=== PATIENT | female | born 1925 | race Caucasian/White ===

== ENCOUNTER → 2016-09-12 | Outpatient (CLI) | payer MEDICARE, BC, OTHER | LOC: MW.CHFP 08:00 | PROVIDERS: ATTEND Physician Assistant | DX: R26.81 Unsteadiness on feet (principal); W19.XXXA Unspecified fall, initial encounter; Y92.099 Unspecified place in other non-institutional residence as the place of occurrence of the external cause | CPT/HCPCS: G0463 ==

== ENCOUNTER 2016-12-09 09:39 | Emergency (ER) | payer MEDICARE, BC, OTHER ==
--- NOTE | 2016-12-09 09:47 | EDM.PDOC ---
ED HPI GENERAL MEDICAL PROBLEM - General Stated Complaint: POSSIBLE STROKE Time Seen by Provider: 12/09/16 09:46 Source of Information: Reports: Patient - History of Present Illness INITIAL COMMENTS - FREE TEXT/NARRATIVE: HISTORY AND PHYSICAL: History of present illness: []Patient presents from home via EMS Patient was up and about enjoying her usual state of health she is generally quite active at home, at 9:00 she went to the bathroom and was found partially slid off the toilet no fall she had right facial droop, 4 out of 5 weakness in both upper extremities no hand grasp bilateral on arrival as well as a mild clonus bilateral lower extremities. CT head without contrast was negative for acute process I did discuss patient with Dr. Brock symptoms had been improving at approximately the 2 hour margi she had good grasp on the right facial droop is improved 5 out of 5 strength lower extremities the clonus had resolved however the patient remains a phasic she can communicate by nodding her head and she has no hand grasp on the right at current. Dr. Brock neurology recommends providing TPA as we are with well within the three-hour window and no known contraindications Review of systems: As per history of present illness and below otherwise all systems reviewed and negative. Past medical history: As per history of present illness and as reviewed below otherwise noncontributory. Surgical history: As per history of present illness and as reviewed below otherwise noncontributory. Social history: No reported history of drug or alcohol abuse. Family history: As per history of present illness and as reviewed below otherwise noncontributory. Physical exam: HEENT: Atraumatic, normocephalic, pupils reactive, negative for conjunctival pallor or scleral icterus, mucous membranes moist, throat clear, neck supple, nontender, trachea midline. Lungs: Clear to auscultation, breath sounds equal bilaterally, chest nontender. Heart: S1S2, regular, negative for clicks, rubs, or JVD. Abdomen: Soft, nondistended, nontender. Negative for masses or hepatosplenomegaly. Negative for costovertebral tenderness. Pelvis: Stable nontender. Genitourinary: Deferred. Rectal: Deferred. Extremities: Atraumatic, negative for cords or calf pain. Neurovascular unremarkable. Neuro: Awake, alert, oriented. Cranial nervesright cranial nerve 7 leasion, unremarkable. . no nursing services manager strength right UE, right facial droop, aphasia noted Diagnostics: []Lab as below EKG Chest [address] no contrast Therapeutics: Normal saline 1 25 mL per hour TPA per protocol. 41.8 mg total, 4.2 mg bolus, 37.6mg over 1 hour Impression: []Right facial weakness improved Bilateral clonus resolved Left nursing services manager has returned full strength She has no nursing services manager strength 0 out of 5 right hand, otherwise right upper extremity has 5 out of 5 strength Definitive disposition and diagnosis as appropriate pending reevaluation and review of above. unable to verbalized Pain Score (Numeric/FACES): 0 - Related Data Allergies Allergy/AdvReac Type Severity Reaction Status Date / Time Penicillins Allergy Other Verified 12/09/16 10:10 Home Meds: Home Meds Atenolol 25 mg PO DAILY 04/23/16 [History] Enalapril [Vasotec] 5 mg PO BID 04/23/16 [History] Simvastatin [Zocor] 40 mg PO BEDTIME 04/23/16 [History] Bisacodyl [Dulcolax] 5 mg PO DAILY PRN 04/25/16 [History] Diltiazem HCl [Diltiazem 24Hr ER] 120 mg PO BID 04/25/16 [History] Acetaminophen [Tylenol] 650 mg PO Q4H PRN #0 tablet 04/29/16 [Rx] Acetaminophen/oxyCODONE [Percocet 325-5 MG] 1 tab PO Q4H PRN #15 tablet [Rx] Docusate Sodium [Colace] 100 mg PO BID PRN cap 04/29/16 [Rx] Ferrous Sulfate 325 mg PO BIDMEALS tablet 04/29/16 [Rx] Polyethylene Glycol 3350 [MiraLAX] 17 gm PO DAILY PRN packet 04/29/16 [Rx] Hydrocodone/Acetaminophen [Hydrocodon-Acetaminophn 10-325] 1 tab PO Q4H PRN [History] Meloxicam 15 mg PO DAILY 12/09/16 [History] Nitrofurantoin Macrocrystal [Macrodantin] 100 mg PO DAILY 12/09/16 [History] Past Medical History HEENT History: Reports: None Cardiovascular History: Reports: High Cholesterol, Hypertension Respiratory History: Reports: COPD, Other (See Below) Other Respiratory History: left lung removed 20 years ago for lung cancer Gastrointestinal History: Reports: Diverticulosis, Other (See Below) Other Gastrointestinal History: colitis Genitourinary History: Reports: UTI, Recurrent DESIGN CHIEF History: Reports: Musculoskeletal History: Reports: Arthritis Neurological History: Reports: None Psychiatric History: Reports: None Endocrine/Metabolic History: Denies: Diabetes, Type II Other Endocrine/Metabolic History: "borderline diabetes" Hematologic History: Reports: Blood Transfusion(s) Oncologic (Cancer) History: Reports: Lung, Other (See Below) Other Oncologic History: hx of lung ca Dermatologic History: Reports: None - Infectious Disease History Infectious Disease History: Reports: Measles, Mumps, Rubella - Past Surgical History Musculoskeletal Surgical History: Reports: Hip Replacement Social & Family History - Family History Family Medical History: Unobtainable HEENT: Reports: Other (See Below) Other HEENT Family History: hole in eardrum Cardiac: Reports: High Cholesterol, Hypertension, [place] Respiratory: Reports: COPD GI: Reports: Chronic Constipation, Chronic Diarrhea OBGYN: Reports: Musculoskeletal: Reports: Back pain, Chronic, Osteoarthritis, Osteoporosis Endocrine/Metabolic: Reports: Other (See Below) Other Endocrine/Metabolic Family History: Both parents had diabetes, type unknown Oncologic: Reports: Colon Other Oncologic Family History: Client stated her family had multiple types of cancers, but could not name them - Tobacco Use Smoking Status *Q: Former Smoker Years of Tobacco use: 50 Packs/Tins Daily: 0.5 Used Tobacco, but Quit: No Month Tobacco Last Used: january Second Hand Smoke Exposure: Yes - Caffeine Use Caffeine Use: Reports: None - Alcohol Use Days Per Week of Alcohol Use: 0 - Recreational Drug Use Recreational Drug Use: No - Living Situation & Occupation Living situation: Reports: with Family ED ROS GENERAL - Review of Systems Review Of Systems: ROS reveals no pertinent complaints other than HPI. ED EXAM, GENERAL - Physical Exam Exam: See Below Course - Vital Signs Last Recorded V/S: Last Vital Signs Temp 36.3 C 12/09/16 09:45 Pulse 61 12/09/16 09:45 Resp 23 H 12/09/16 09:45 BP 157/60 H 12/09/16 09:45 Pulse Ox 95 12/09/16 09:45 - Orders/Labs/Meds Orders: Active Orders 24 hr Category Date Time Status EKG Documentation Completion [RC] STAT Care 12/09/16 09:44 Active DRUG SCREEN, URINE [URCHEM] Stat Lab 12/09/16 10:57 Ordered UA W/MICROSCOPIC [URIN] Stat Lab 12/09/16 10:57 Ordered Labs: Laboratory Tests 12/09/16 12/09/16 12/09/16 Range/Units 09:46 09:46 09:46 WBC 9.10 (4.0-11.0) K/uL RBC 4.14 L (4.30-5.90) M/uL Hgb 11.8 L (12.0-16.0) g/dL Hct 39.2 (36.0-46.0) % MCV 94.7 (80.0-98.0) fL MCH 28.5 (27.0-32.0) pg MCHC 30.1 L (31.0-37.0) g/dL RDW Std Deviation 47.4 (28.0-62.0) fl RDW Coeff of Fady 14 (11.0-15.0) % Plt Count 266 (150-400) K/uL MPV 10.80 (7.40-12.00) fL Neut % (Auto) 67.8 (48.0-80.0) % Lymph % (Auto) 24.2 (16.0-40.0) % [place] % (Auto) 6.6 (0.0-15.0) % Eos % (Auto) 1.3 (0.0-7.0) % Baso % (Auto) 0.1 (0.0-1.5) % Neut # (Auto) 6.2 H (1.4-5.7) K/uL Lymph # (Auto) 2.2 (0.6-2.4) K/uL [place] # (Auto) 0.6 (0.0-0.8) K/uL Eos # (Auto) 0.1 (0.0-0.7) K/uL Baso # (Auto) 0.0 (0.0-0.1) K/uL Nucleated RBC % 0.0 /100WBC Nucleated RBCs # 0 K/uL INR (0.86-1.11) Sodium 142 (136-146) mmol/L Potassium 4.9 (3.5-5.1) mmol/L Chloride 99 (98-110) mmol/L Carbon Dioxide 32 H (21-31) mmol/L BUN 24 H (6.0-23.0) mg/dL Creatinine 1.0 (0.6-1.5) mg/dL Est Cr Clr Drug Dosing TNP Estimated GFR (MDRD) 52.2 ml/min Glucose 139 H (60-110) mg/dL Calcium 9.8 (8.8-10.8) mg/dL Total Bilirubin 0.4 (0.1-1.5) mg/dL AST 15 (5-40) IU/L ALT 6 L (8-54) IU/L Alkaline Phosphatase 56 (40-150) Troponin I < 0.10 (0.0-0.29) NG/ML Total Protein 7.4 (6.0-8.0) g/dL Albumin 3.6 (3.4-4.8) g/dL Globulin 3.8 H (2.0-3.5) g/dL Albumin/Globulin Ratio 1.0 L (1.3-2.8) Ethyl Alcohol < 10.0 mg/dL 12/09/16 Range/Units 09:46 WBC (4.0-11.0) K/uL RBC (4.30-5.90) M/uL Hgb (12.0-16.0) g/dL Hct (36.0-46.0) % MCV (80.0-98.0) fL MCH (27.0-32.0) pg MCHC (31.0-37.0) g/dL RDW Std Deviation (28.0-62.0) fl RDW Coeff of Fady (11.0-15.0) % Plt Count (150-400) K/uL MPV (7.40-12.00) fL Neut % (Auto) (48.0-80.0) % Lymph % (Auto) (16.0-40.0) % [place] % (Auto) (0.0-15.0) % Eos % (Auto) (0.0-7.0) % Baso % (Auto) (0.0-1.5) % Neut # (Auto) (1.4-5.7) K/uL Lymph # (Auto) (0.6-2.4) K/uL [place] # (Auto) (0.0-0.8) K/uL Eos # (Auto) (0.0-0.7) K/uL Baso # (Auto) (0.0-0.1) K/uL Nucleated RBC % /100WBC Nucleated RBCs # K/uL INR 0.95 (0.86-1.11) Sodium (136-146) mmol/L Potassium (3.5-5.1) mmol/L Chloride (98-110) mmol/L Carbon Dioxide (21-31) mmol/L BUN (6.0-23.0) mg/dL Creatinine (0.6-1.5) mg/dL Est Cr Clr Drug Dosing Estimated GFR (MDRD) ml/min Glucose (60-110) mg/dL Calcium (8.8-10.8) mg/dL Total Bilirubin (0.1-1.5) mg/dL AST (5-40) IU/L ALT (8-54) IU/L Alkaline Phosphatase (40-150) Troponin I (0.0-0.29) NG/ML Total Protein (6.0-8.0) g/dL Albumin (3.4-4.8) g/dL Globulin (2.0-3.5) g/dL Albumin/Globulin Ratio (1.3-2.8) Ethyl Alcohol mg/dL Meds: Medications Discontinued Medications Generic Name Dose Route Start Last Admin Trade Name Allq PRN Reason Stop Dose Admin Alteplase, Recombinant Confirm 12/09/16 11:20 Activase Administered 12/09/16 11:21 Dose 100 mg .ROUTE .STK-MED ONE Aspirin 324 mg 12/09/16 10:04 12/09/16 10:45 Aspirin PO 12/09/16 10:05 Not Given ONETIME ONE Lidocaine HCl Confirm 12/09/16 11:27 Xylocaine-Mpf 1% Administered 12/09/16 11:28 Dose 2 mls @ as directed .ROUTE .STK-MED ONE Departure - Departure Time of Disposition: 12:01 Disposition: DC/Tfer to Other 70 Condition: Poor Clinical Impression: Stroke - Discharge Information Referrals: PCP,None [Primary Care Provider] - - My Orders Last 24 Hours: My Active Orders 12/09/16 09:44 EKG Documentation Completion [RC] STAT 12/09/16 10:57 DRUG SCREEN, URINE [URCHEM] Stat UA W/MICROSCOPIC [URIN] Stat - Assessment/Plan Last 24 Hours: My Active Orders 12/09/16 09:44 EKG Documentation Completion [RC] STAT 12/09/16 10:57 DRUG SCREEN, URINE [URCHEM] Stat UA W/MICROSCOPIC [URIN] Stat
--- NOTE | 2016-12-09 10:03 | CT ---
EXAMINATION: Non contrast CT head. Coronal and sagittal reformats. HISTORY: Pain FINDINGS: No evidence of intra or extra axial hemorrhage, mass, midline shift, hydrocephalus or edema. There is moderate generalized atrophy and periventricular white matter hypodensities noted. No hypoattenuation changes in the major vascular territories to suggest acute infarct. No abnormal intracranial calcifications are detected. Mild vascular calcifications are noted. Partial opacification of the right mastoid air cells and middle ear noted. Severe degenerative adair es noted within the right TMJ. The pituitary fossa appears unremarkable. The orbits and globes are symmetric. The calvarium is intact. No evidence of skull fracture. IMPRESSION: 1. No acute intracranial findings. 2. Moderate generalized atrophy and small vessel ischemic changes. 3. Partial opacification of the right middle ear and mastoid air cells, correlate clinically. The above findings were called to the ER at 10:00 AM.
[2016-12-09] MEDS ORDERED: Aspirin 81 MG Tab.Chew PO ONE (10:04)
[2016-12-09 10:15] LABS: CHLORIDE,CL 99 mmol/L (98-110); SODIUM,NA 142 mmol/L (136-146)
--- NOTE | 2016-12-09 10:22 | CR ---
EXAMINATION: Portable chest radiograph. HISTORY: Weakness. FINDINGS: The trachea is midline. The cardiac silhouette is obscured secondary to complete opacification of th e left hemithorax, stable. Aortic calcifications are noted. Stable coarse interstitial prominence wi thin the right hemithorax. There is likely a tiny loculated right pleural effusion no pneumothorax. Osseous structures appear osteopenic. IMPRESSION: 1. Stable opacification of the left hemithorax. 2. Chronic interstitial changes within the right hemithorax. 3. Tiny right pleural effusion.
[2016-12-09] MEDS ORDERED: Lidocaine 1% 2 ML ONE (11:27)
--- NOTE | 2016-12-09 11:54 | PCM.SN ---
- Free Text/Narrative Note: called for IV access. Patient unable to verbalize dx stroke. Family at bedside. L) arm aseptic technique 20 ga AC attempt, unable to access vein, Ultrasound used to visualize L) upper arm. 20 ga placed, saline lock, dressing and secure with tape. RN notified.
[2016-12-09] MEDS ORDERED: ALTEPLASE IV SCH (12:15)
--- NOTE | 2016-12-09 13:01 | EDM.PDOC ---
ED HPI GENERAL MEDICAL PROBLEM - General Chief Complaint: Neurological Problem Stated Complaint: POSSIBLE STROKE Time Seen by Provider: 12/09/16 10:45 Source of Information: Reports: Patient - History of Present Illness INITIAL COMMENTS - FREE TEXT/NARRATIVE: This is an 89-year-old woman with HL atrial fibrillation on aspirin, COPD, presenting with right-sided weakness, aphasia. Per her daughter, she was last seen normal at 9:00 this morning. She was then found to be minimally responsive with weakness, worse on the right side. By the time she arrived in the emergency department, she had improvement in her mental status, but she continued to have right facial droop, right upper and lower limb weakness and aphasia.. Patient is not able to provide history. Most recent systolic blood pressure was 150s. CT head was negative for acute process. No recent surgeries or procedures, history of bleeding. She does bruise easily unable to verbalized Pain Score (Numeric/FACES): 0 - Related Data Allergies Allergy/AdvReac Type Severity Reaction Status Date / Time Penicillins Allergy Other Verified 12/09/16 10:10 Home Meds: Home Meds Atenolol 25 mg PO DAILY 04/23/16 [History] Enalapril [Vasotec] 5 mg PO BID 04/23/16 [History] Simvastatin [Zocor] 40 mg PO BEDTIME 04/23/16 [History] Bisacodyl [Dulcolax] 5 mg PO DAILY PRN 04/25/16 [History] Diltiazem HCl [Diltiazem 24Hr ER] 120 mg PO BID 04/25/16 [History] Acetaminophen [Tylenol] 650 mg PO Q4H PRN #0 tablet 04/29/16 [Rx] Acetaminophen/oxyCODONE [Percocet 325-5 MG] 1 tab PO Q4H PRN #15 tablet [Rx] Docusate Sodium [Colace] 100 mg PO BID PRN cap 04/29/16 [Rx] Ferrous Sulfate 325 mg PO BIDMEALS tablet 04/29/16 [Rx] Polyethylene Glycol 3350 [MiraLAX] 17 gm PO DAILY PRN packet 04/29/16 [Rx] Hydrocodone/Acetaminophen [Hydrocodon-Acetaminophn 10-325] 1 tab PO Q4H PRN [History] Meloxicam 15 mg PO DAILY 12/09/16 [History] Nitrofurantoin Macrocrystal [Macrodantin] 100 mg PO DAILY 12/09/16 [History] Past Medical History HEENT History: Reports: None Cardiovascular History: Reports: Afib, High Cholesterol, Hypertension Respiratory History: Reports: COPD, Other (See Below) Other Respiratory History: left lung removed 20 years ago for lung cancer Gastrointestinal History: Reports: Diverticulosis, Other (See Below) Other Gastrointestinal History: colitis Genitourinary History: Reports: UTI, Recurrent [employer] History: Reports: Musculoskeletal History: Reports: Arthritis Neurological History: Reports: None Psychiatric History: Reports: None Endocrine/Metabolic History: Denies: Diabetes, Type II Other Endocrine/Metabolic History: "borderline diabetes" Hematologic History: Reports: Blood Transfusion(s) Oncologic (Cancer) History: Reports: Lung, Other (See Below) Other Oncologic History: hx of lung ca Dermatologic History: Reports: None - Infectious Disease History Infectious Disease History: Reports: Measles, Mumps, Rubella - Past Surgical History Musculoskeletal Surgical History: Reports: Hip Replacement Social & Family History - Family History Family Medical History: Unobtainable HEENT: Reports: Other (See Below) Other HEENT Family History: hole in eardrum Cardiac: Reports: High Cholesterol, Hypertension, [place] Respiratory: Reports: COPD GI: Reports: Chronic Constipation, Chronic Diarrhea OBGYN: Reports: Musculoskeletal: Reports: Back pain, Chronic, Osteoarthritis, Osteoporosis Endocrine/Metabolic: Reports: Other (See Below) Other Endocrine/Metabolic Family History: Both parents had diabetes, type unknown Oncologic: Reports: Colon Other Oncologic Family History: Client stated her family had multiple types of cancers, but could not name them - Tobacco Use Smoking Status *Q: Former Smoker Years of Tobacco use: 50 Packs/Tins Daily: 0.5 Used Tobacco, but Quit: No Month Tobacco Last Used: january Second Hand Smoke Exposure: Yes - Caffeine Use Caffeine Use: Reports: None - Alcohol Use Days Per Week of Alcohol Use: 0 - Recreational Drug Use Recreational Drug Use: No - Living Situation & Occupation Living situation: Reports: with Family ED ROS GENERAL - Review of Systems Review Of Systems: Unable To Obtain (aphasic) ED EXAM, NEURO - Physical Exam Exam: See Below Comments: CV: RRR Resp: anterior rhonchi Neuro: Constitutional: No acute distress Neurological: Mental Status: Mental Status: Alert, makes eye contact, does not follow commands unless given visual cues. Answers questions with unintellible sounds. Cranial Nerves: Pupils equally round and reactive to light. Positive blink to threat. Gaze conjugate, horizontal EOMI. Mild right facial droop. She does not elevate palate. Tongue protrudes tp the right. Motor: Antigravity bilateral upper and lower limbs, drift noted in right lower leg not left. Drift not reliably assessed in upper limbs. Sensation: Sensation testing unreliable.. Deep tendon reflexes: Brisk throughout. Plantar responses are extensor bilaterally. Coordination: Reaches hand without clear dysmetria.. Gait: not tested Course - Vital Signs Last Recorded V/S: Last Vital Signs Temp 36.3 C 12/09/16 09:45 Pulse 61 12/09/16 09:45 Resp 23 H 12/09/16 09:45 BP 157/60 H 12/09/16 09:45 Pulse Ox 95 12/09/16 09:45 - Orders/Labs/Meds Orders: Active Orders 24 hr Category Date Time Status EKG Documentation Completion [RC] STAT Care 12/09/16 09:44 Active DRUG SCREEN, URINE [URCHEM] Stat Lab 12/09/16 10:57 Ordered UA W/MICROSCOPIC [URIN] Stat Lab 12/09/16 10:57 Ordered Alteplase [Activase] 37.8 mg Med 12/09/16 12:15 Active Premix Bag 1 bag IV .INFUSION Medication Orders Alteplase, Recombinant 37.8 mg (/ Premix) 0 mls @ 37.8 mls/hr IV .INFUSION ORIANA Last Admin: 12/09/16 11:55 Dose: 37.8 mls/hr Labs: Laboratory Tests 12/09/16 12/09/16 12/09/16 Range/Units 09:46 09:46 09:46 WBC 9.10 (4.0-11.0) K/uL RBC 4.14 L (4.30-5.90) M/uL Hgb 11.8 L (12.0-16.0) g/dL Hct 39.2 (36.0-46.0) % MCV 94.7 (80.0-98.0) fL MCH 28.5 (27.0-32.0) pg MCHC 30.1 L (31.0-37.0) g/dL RDW Std Deviation 47.4 (28.0-62.0) fl RDW Coeff of Fady 14 (11.0-15.0) % Plt Count 266 (150-400) K/uL MPV 10.80 (7.40-12.00) fL Neut % (Auto) 67.8 (48.0-80.0) % Lymph % (Auto) 24.2 (16.0-40.0) % [place] % (Auto) 6.6 (0.0-15.0) % Eos % (Auto) 1.3 (0.0-7.0) % Baso % (Auto) 0.1 (0.0-1.5) % Neut # (Auto) 6.2 H (1.4-5.7) K/uL Lymph # (Auto) 2.2 (0.6-2.4) K/uL [place] # (Auto) 0.6 (0.0-0.8) K/uL Eos # (Auto) 0.1 (0.0-0.7) K/uL Baso # (Auto) 0.0 (0.0-0.1) K/uL Nucleated RBC % 0.0 /100WBC Nucleated RBCs # 0 K/uL INR (0.86-1.11) Sodium 142 (136-146) mmol/L Potassium 4.9 (3.5-5.1) mmol/L Chloride 99 (98-110) mmol/L Carbon Dioxide 32 H (21-31) mmol/L BUN 24 H (6.0-23.0) mg/dL Creatinine 1.0 (0.6-1.5) mg/dL Est Cr Clr Drug Dosing TNP Estimated GFR (MDRD) 52.2 ml/min Glucose 139 H (60-110) mg/dL Calcium 9.8 (8.8-10.8) mg/dL Total Bilirubin 0.4 (0.1-1.5) mg/dL AST 15 (5-40) IU/L ALT 6 L (8-54) IU/L Alkaline Phosphatase 56 (40-150) Troponin I < 0.10 (0.0-0.29) NG/ML Total Protein 7.4 (6.0-8.0) g/dL Albumin 3.6 (3.4-4.8) g/dL Globulin 3.8 H (2.0-3.5) g/dL Albumin/Globulin Ratio 1.0 L (1.3-2.8) Ethyl Alcohol < 10.0 mg/dL 12/09/16 Range/Units 09:46 WBC (4.0-11.0) K/uL RBC (4.30-5.90) M/uL Hgb (12.0-16.0) g/dL Hct (36.0-46.0) % MCV (80.0-98.0) fL MCH (27.0-32.0) pg MCHC (31.0-37.0) g/dL RDW Std Deviation (28.0-62.0) fl RDW Coeff of Fady (11.0-15.0) % Plt Count (150-400) K/uL MPV (7.40-12.00) fL Neut % (Auto) (48.0-80.0) % Lymph % (Auto) (16.0-40.0) % [place] % (Auto) (0.0-15.0) % Eos % (Auto) (0.0-7.0) % Baso % (Auto) (0.0-1.5) % Neut # (Auto) (1.4-5.7) K/uL Lymph # (Auto) (0.6-2.4) K/uL [place] # (Auto) (0.0-0.8) K/uL Eos # (Auto) (0.0-0.7) K/uL Baso # (Auto) (0.0-0.1) K/uL Nucleated RBC % /100WBC Nucleated RBCs # K/uL INR 0.95 (0.86-1.11) Sodium (136-146) mmol/L Potassium (3.5-5.1) mmol/L Chloride (98-110) mmol/L Carbon Dioxide (21-31) mmol/L BUN (6.0-23.0) mg/dL Creatinine (0.6-1.5) mg/dL Est Cr Clr Drug Dosing Estimated GFR (MDRD) ml/min Glucose (60-110) mg/dL Calcium (8.8-10.8) mg/dL Total Bilirubin (0.1-1.5) mg/dL AST (5-40) IU/L ALT (8-54) IU/L Alkaline Phosphatase (40-150) Troponin I (0.0-0.29) NG/ML Total Protein (6.0-8.0) g/dL Albumin (3.4-4.8) g/dL Globulin (2.0-3.5) g/dL Albumin/Globulin Ratio (1.3-2.8) Ethyl Alcohol mg/dL Meds: Medications Generic Name Dose Route Start Last Admin Trade Name Freq PRN Reason Stop Dose Admin Alteplase, Recombinant 37.8 mg 0 mls @ 37.8 mls/hr 12/09/16 12:15 12/09/16 11 :55 / Premix IV 37.8 mls/hr .INFUSION ORIANA Administration Discontinued Medications Generic Name Dose Route Start Last Admin Trade Name Freq PRN Reason Stop Dose Admin Alteplase, Recombinant Confirm 12/09/16 11:20 12/09/16 12:12 Activase Administered 12/09/16 11:21 Not Given Dose 100 mg .ROUTE .STK-MED ONE Alteplase, Recombinant 4.2 mg 12/09/16 12:09 12/09/16 11:52 Activase IV 12/09/16 12:10 4.2 mg .BOLUS ONE Administration Aspirin 324 mg 12/09/16 10:04 12/09/16 10:45 Aspirin PO 12/09/16 10:05 Not Given ONETIME ONE Lidocaine HCl Confirm 12/09/16 11:27 12/09/16 12:27 Xylocaine-Mpf 1% Administered 12/09/16 11:28 1 ml Dose Administration 2 mls @ as directed .ROUTE .STK-MED ONE Departure - Departure Time of Disposition: 12:00 (see ED provider note) Disposition: DC/Tfer to Acute Hospital 02 Condition: Poor Clinical Impression: Stroke - Discharge Information Referrals: PCP,None [Primary Care Provider] - - Problem List Review Problem List Initiated/Reviewed/Updated: Yes - Assessment/Plan Assessment:: Impression: 89 year old woman with h/o of atrial fibrillation on ASA presenting with acute onset aphasia and right sided weakness consistent with acute stroke < 3 hours from last known baseline. Plan -TPA, agree with transfer to [facility], I discussed with Dr. Le, neurologist. They do have the ability to interventional clot retrieval if indicated. -MRI, MRA head and neck -after TPA maintain SBP < 185/105 -no invasive procedure e.g. arterial stick, goncalves placement for 24 hours -no SC heparin or lovenox for > 24 hr -hold ASA for at least 24 hrs -repeat head CT ~24 hours post TPA -Neuro checks per protocol, stat CT if any neurologic deterioration -PT/OT/speech when stable
[2016-12-09 14:00] VITALS: BP 135/47
== END 2016-12-09 13:15 ==
LOC: MW.ED 09:39
DX: I63.9 Cerebral infarction, unspecified (principal); I48.91 Unspecified atrial fibrillation; I10 Essential (primary) hypertension; J44.9 Chronic obstructive pulmonary disease, unspecified; E11.9 Type 2 diabetes mellitus without complications; Z88.0 Allergy status to penicillin; Z87.440 Personal history of urinary (tract) infections; Z79.899 Other long term (current) drug therapy; Z87.891 Personal history of nicotine dependence
CPT/HCPCS: 36415; 70450; 71010; 80053; 84484; 85025; 85610; 93005; 96365; 96376; 99285; G0480; J2997